=== PATIENT | female | born 1965 | race Caucasian/White ===

== ENCOUNTER 2017-12-21 19:35 | Emergency (ER) | payer BC ==
[2017-12-21 20:01] VITALS: BP 134/82
[2017-12-21] MEDS ORDERED: DIAZEPAM INJ 10 MG/2 ML DISP.SYRIN IV ONE (20:15)
[2017-12-21] MEDS ORDERED: NORMAL SALINE 1000 ML 1,000 ML IV ONE (20:16)
--- NOTE | 2017-12-21 20:17 | ER Document Report ---
ED Medical Screen (RME) - General Chief Complaint: Anxiety Stated Complaint: PSHYC Time Seen by Provider: 12/21/17 20:15 Notes: 52 years old female with a history of multiple psychiatric disorders including anxiety, suddenly started to having difficulty in breathing when she woke up in shaking both upper limbs and lower limbs, almost the entire body. She states that she is unable to control the shaking. Denies any constitutional symptoms. Denies any triggering factors. On examination-bilateral upper limbs and lower limbs voluntary movements noted. TRAVEL OUTSIDE OF THE [place] IN LAST 30 DAYS: No Physical Exam - Vital signs Vitals: Temp Pulse Resp BP Pulse Ox 97.6 F 113 H 18 134/82 H 98 12/21/17 20:00 12/21/17 20:00 12/21/17 20:00 12/21/17 20:00 12/21/17 20:00 Course - Vital Signs Vital signs: Temp Pulse Resp BP Pulse Ox 97.6 F 113 H 18 134/82 H 98 12/21/17 20:00 12/21/17 20:00 12/21/17 20:00 12/21/17 20:00 12/21/17 20:00 Doctor's Discharge - Discharge Instructions: Anxiety ([facility]) Referrals: MACIEJ OLIVEROS MD [Primary Care Provider] - Follow up as needed
[2017-12-21 20:44] LABS: ABSOLUTE LYMPHOCYTES (AUTO) 1.6 10^3/uL (0.5-4.7); ABSOLUTE MONOCYTES (AUTO) 0.7 10^3/uL (0.1-1.4); ABSOLUTE NEUT (AUTO) 7.3 10^3/uL (1.7-8.2); BASOPHILS % (AUTO) 0.2 % (0-2); HEMATOCRIT 39.5 % (36.0-47.0); HEMOGLOBIN 13.4 g/dL (12.0-15.5); LYMPHOCYTES % (AUTO) 16.9 % (13-45); MEAN CORPUSCULAR HEMOGLOBIN 32.4 pg (27.0-33.4); MEAN CORPUSCULAR VOLUME 95 fl (80-97); MONOCYTES % (AUTO) 7.6 % (3-13); PLATELET COUNT 443 10^3/uL (150-450); RED BLOOD COUNT 4.15 10^6/uL (3.72-5.28); RED CELL DISTRIBUTION WIDTH 12.6 % (11.5-14.0); SEGMENTED NEUTROPHILS % (AUTO) 75.3 % (42-78); TOTAL CELLS COUNTED % (AUTO) 100 %; WHITE BLOOD COUNT 9.7 10^3/uL (4.0-10.5)
[2017-12-21 22:27] LABS: ALANINE AMINOTRANSFERASE 19 U/L (9-52); ALBUMIN 4.3 g/dL (3.5-5.0); ALKALINE PHOSPHATASE 96 U/L (38-126); ANION GAP 9 (5-19); ASPARTATE AMINO TRANSFERASE 25 U/L (14-36); BILIRUBIN,DIRECT 0.5 mg/dL (0.0-0.4); BILIRUBIN,TOTAL 0.5 mg/dL (0.2-1.3); BLOOD UREA NITROGEN 10 mg/dL (7-20); CALCIUM 9.8 mg/dL (8.4-10.2); CARBON DIOXIDE 25 mmol/L (22-30); CHLORIDE 103 mmol/L (98-107); GLUCOSE 115 mg/dL (75-110); POTASSIUM 3.8 mmol/L (3.6-5.0); SODIUM 136.9 mmol/L (137-145); TOTAL PROTEIN 7.7 g/dL (6.3-8.2)
[2017-12-21 22:32] LABS: ACETAMINOPHEN < 10 ug/mL (10-30); ALCOHOL < 10 mg/dL (NONE DETECTED); SALICYLATE < 1.0 mg/dL (2.0-20.0)
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
[2017-12-21 23:57] LABS: APPEARANCE,URINE CLEAR; BILIRUBIN,URINE NEGATIVE (NEGATIVE); COLOR,URINE STRAW; GLUCOSE, URINE NEGATIVE (NEGATIVE); KETONES,URINE NEGATIVE (NEGATIVE); URINE SPECIFIC GRAVITY 1.003
[2017-12-21 23:58] LABS: LEUKOCYTE ESTERASE,URINE NEGATIVE (NEGATIVE); NITRITE,URINE NEGATIVE (NEGATIVE); PROTEIN,URINE NEGATIVE (NEGATIVE); UROBILINOGEN,URINE NEGATIVE mg/dL (<2.0)
[2017-12-21] MEDS ORDERED: LORAZEPAM INJ 2 MG/1 ML VIAL IV ONE (23:58)
[2017-12-22 00:14] LABS: URINE AMPHETAMINES SCREEN NEGATIVE; URINE BARBITURATES SCREEN NEGATIVE; URINE BENZODIAZEPINES SCREEN UNCONFIRMED POSITIVE; URINE COCAINE SCREEN NEGATIVE; URINE MARIJUANA (THC) SCREEN NEGATIVE; URINE METHADONE SCREEN NEGATIVE; URINE PHENCYCLIDINE SCREEN NEGATIVE
--- NOTE | 2017-12-22 12:18 | ER Document Report ---
Doctor's Note Notes: 12/22/17 12:17 Patient has been seen and evaluated resting comfortably no acute distress. Laboratory values previous provider note and vital signs have been evaluated. Patient otherwise looks to be stable for disposition/transfer.
--- NOTE | 2017-12-22 15:33 | EKG REPORT ---
SEVERITY:- ABNORMAL ECG - SINUS TACHYCARDIA BIATRIAL ABNORMALITIES BORDERLINE T ABNORMALITIES, ANT-LAT LEADS : Confirmed by: Zayda Carl MD 22-Dec-2017 15:32:47
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
== END 2017-12-22 12:30 | disposition home or self-care (01) ==
LOC: ER 19:35
DX: R25.1 Tremor, unspecified (principal); F41.9 Anxiety disorder, unspecified; F19.939 Other psychoactive substance use, unspecified with withdrawal, unspecified; F20.9 Schizophrenia, unspecified
CPT/HCPCS: 93005; 99284; 96361; 96374; 96375; 36415; 80307 ×4; 85025; 80053; 81001; 93010; J3360; J2060

== ENCOUNTER 2018-02-02 18:12 | Inpatient (IN) | payer BC ==
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
--- NOTE | 2018-02-02 18:42 | RADIOLOGY REPORT (SQ) ---
EXAM DESCRIPTION: CT HEAD WITHOUT COMPLETED DATE/TIME: 02/02/2018 6:25 pm REASON FOR STUDY: possible stroke COMPARISON: None. TECHNIQUE: Axial images acquired through the brain without intravenous contrast. Images reviewed wi th bone, brain and subdural windows. Additional sagittal and coronal reconstructions were generated. Images stored on PACS. All CT scanners at this facility use dose modulation, iterative reconstruction, and/or weight based d osing when appropriate to reduce radiation dose to as low as reasonably achievable (ALARA). [facility]: Dose Right [facility]: CareDose [facility]: Dose Right [facility]: Teradose 4D [facility]: Zipfit RADIATION DOSE: CT Rad equipment meets quality standard of care and radiation dose reduction techniq ues were employed. CTDIvol: 53.2 mGy. DLP: 937 mGy-cm. mGy. LIMITATIONS: None. FINDINGS: VENTRICLES: Normal size and contour. CEREBRUM: No masses. No hemorrhage. No midline shift. No evidence for acute infarction. Normal gra y/white matter differentiation. No areas of low density in the white matter. CEREBELLUM: No masses. No hemorrhage. No alteration of density. No evidence for acute infarction. EXTRAAXIAL SPACES: No fluid collections. No masses. ORBITS AND GLOBE: No intra- or extraconal masses. Normal contour of globe without masses. CALVARIUM: No fracture. PARANASAL SINUSES: No fluid or mucosal thickening. SOFT TISSUES: No mass or hematoma. OTHER: No other significant finding. IMPRESSION: NORMAL BRAIN CT WITHOUT CONTRAST. EVIDENCE OF ACUTE STROKE: NO. COMMENT: Pertinent positive or negative findings of the imaging study reported as a CRITICAL EXAM lamar TAPIA MD at18:30 on 02/02/2018. Category of Critical Exam: Stroke alert Quality ID # [id number]: Final reports with documentation of one or more dose reduction techniques (e.g., Au tomated exposure control, adjustment of the mA and/or kV according to patient size, use of iterative reconstruction technique) TECHNICAL DOCUMENTATION: JOB ID: [id number] [employer]- All Rights Reserved Reading location - IP/workstation name: [email or web address]
--- NOTE | 2018-02-02 18:43 | RADIOLOGY REPORT (SQ) ---
EXAM DESCRIPTION: CHEST SINGLE VIEW COMPLETED DATE/TIME: 02/02/2018 6:32 pm REASON FOR STUDY: POSSIBLE STROKE COMPARISON: None. EXAM PARAMETERS: NUMBER OF VIEWS: One view. TECHNIQUE: Single frontal radiographic view of the chest acquired. RADIATION DOSE: NA LIMITATIONS: None. FINDINGS: LUNGS AND PLEURA: No opacities, masses or pneumothorax. No pleural effusion. MEDIASTINUM AND HILAR STRUCTURES: No masses. Contour normal. HEART AND VASCULAR STRUCTURES: Heart normal in size. Normal vasculature. BONES: Thoracolumbar scoliosis is identified. HARDWARE: None in the chest. OTHER: No other significant finding. IMPRESSION: NO ACUTE RADIOGRAPHIC FINDING IN THE CHEST. TECHNICAL DOCUMENTATION: JOB ID: [id number] [employer]- All Rights Reserved Reading location - IP/workstation name: [email or web address]
--- NOTE | 2018-02-02 18:44 | ER Document Report ---
ED General - General Chief Complaint: S/S of Possible Stroke Stated Complaint: FALL/ALTERED MENTAL STATUS Time Seen by Provider: 02/02/18 18:20 Notes: 52-year-old lady presents with altered mental status. Last seen normal 5 hours ago by , and then when he got home furniture was all messed up like she had been falling and he found her on the floor the bathroom minimally responsive. No lateralizing symptoms. 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 She is minimally responsive but does deny taking an overdose and he has no concern for either purposeful or accidental overdose. Denies fever or recent illness. Seen at triage. Stroke protocol initiated. CT was read negative by radiologist to me. TRAVEL OUTSIDE OF THE [place] IN LAST 30 DAYS: No - Related Data Allergies/Adverse Reactions: latex Allergy (Verified 02/02/18 18:47) sulfur dioxide Allergy (Verified 02/02/18 18:47) Past Medical History - Social History Smoking Status: Never Smoker Family History: Reviewed & Not Pertinent Renal/ Medical History: Denies: Hx Peritoneal Dialysis Review of Systems - Review of Systems Notes: PHYSICAL EXAMINATION General: Thin chronically ill lips dry slumped in the bed d Head: Atraumatic, normocephalic ENT: Mouth normal, oropharynx very dry no exudates or tonsillar enlargement Eyes: Conjunctiva normal, pupils equal, lids normal Neck: No JVD, supple, no guarding CVS: Normal rate, regular rhythm, no murmurs Resp: No resp distress, equal and normal breath sounds bilaterally GI: Nondistended, soft, no tenderness to palpation, no rebound or guarding Ext: No deformities, no edema, normal range of motion in upper and lower ext Back: No CVA or midline TTP Skin: No rash, warm Lymphatic: No lymphadeopathy noted Neuro: BP arouses to voice. Follows commands weakly with all 4 extremities, strength is globally decreased but no lateralizing strength deficits. Cranial nerves are intact. Speech is slurred and appropriate. Patient is disoriented. There is no hyperreflexia, rigidity or clonus.. -: Yes ROS unobtainable due to patient's medical condition Physical Exam - Vital signs Vitals: Temp Resp BP Pulse Ox 98.1 F 15 118/70 100 02/02/18 18:34 02/02/18 18:34 02/02/18 18:34 02/02/18 18:34 Course - Re-evaluation Re-evalutation: 02/02/18 18:43 This is a critically ill 52-year-old with altered mental status on the setting of multiple psychiatric drugs. Differential includes anticholinergic overdose either accidental or purposeful, doubt serotonin syndrome or neuroleptic neuroleptic malignant syndrome at this point. Is also likely quite dehydrated. Will check for vitamin around his renal failure and rhabdo myelitis. We will do EKG for syncope. Etiology read negative. 02/02/18 22:24 Patient reassessed about an hour after arrival. After about a liter of fluid she is perked up some, has her eyes open and her head upright, and answer simple questions although her speech is still slurred and her states that she still off her baseline. She has a very mild rhabdomyolysis with normal creatinine and otherwise her labs are unrevealing. CT scan confirmed negative. She still has not been able to provide urine. She does have a white count so this needs to be followed up. I did discuss with hospitalist, Dr. Henriquez, for admission. I do not believe this reflects seizure, stroke, neuroleptic malignant syndrome or other severe drug intoxication or side effect at this time, she may simply just be dehydrated given her improvement with fluids. She will be admitted for further management. Urine is still pending as of 10: 25 PM when I am signing this note. Hospitalist to follow-up. - Vital Signs Vital signs: Temp Pulse Resp BP Pulse Ox 97.5 F 84 17 122/67 100 02/02/18 20:50 02/02/18 20:50 02/02/18 20:50 02/02/18 20:50 02/02/18 20:50 - Laboratory Result Diagrams: 02/02/18 18:37 02/02/18 18:37 Laboratory results interpreted by me: 02/02/18 02/02/18 18:37 18:37 WBC 13.9 H Seg Neutrophils % 89.1 H Lymphocytes % 5.3 L Absolute Neutrophils 12.4 H Carbon Dioxide 31 H Est GFR (Non-Af Amer) 58 L Creatine Kinase 525 H Critical Care Note - Critical Care Note Total time excluding time spent on procedures (mins): 32 - The above patient is critically ill. Not including procedures, but including direct re-evaluations, speaking with patient and/or consultants, interpreting results, and documenting , I spent the total amount of minute listed listed above on critical care time Discharge - Discharge Clinical Impression: Dehydration Altered mental status Qualifiers: Altered mental status type: unspecified Qualified Code(s): R41.82 - Altered mental status, unspecified Condition: Fair Disposition: ADMITTED INPATIENT Admitting Provider: Hospitalist Unit Admitted: Medical Floor
[2018-02-02 18:49] LABS: ABSOLUTE LYMPHOCYTES (AUTO) 0.7 10^3/uL (0.5-4.7); ABSOLUTE MONOCYTES (AUTO) 0.7 10^3/uL (0.1-1.4); ABSOLUTE NEUT (AUTO) 12.4 10^3/uL (1.7-8.2); BASOPHILS % (AUTO) 0.3 % (0-2); HEMATOCRIT 37.5 % (36.0-47.0); HEMOGLOBIN 12.7 g/dL (12.0-15.5); LYMPHOCYTES % (AUTO) 5.3 % (13-45); MEAN CORPUSCULAR HEMOGLOBIN 32.6 pg (27.0-33.4); MEAN CORPUSCULAR HGB CONC 33.9 g/dL (32.0-36.0); MEAN CORPUSCULAR VOLUME 96 fl (80-97); MONOCYTES % (AUTO) 5.3 % (3-13); PLATELET COUNT 264 10^3/uL (150-450); RED CELL DISTRIBUTION WIDTH 13.4 % (11.5-14.0); SEGMENTED NEUTROPHILS % (AUTO) 89.1 % (42-78); TOTAL CELLS COUNTED % (AUTO) 100 %; WHITE BLOOD COUNT 13.9 10^3/uL (4.0-10.5)
[2018-02-02] MEDS ORDERED: NORMAL SALINE 1000 ML 1,000 ML IV ONE (18:55)
[2018-02-02 19:02] LABS: ANION GAP 10 (5-19); BLOOD UREA NITROGEN 16 mg/dL (7-20); CALCIUM 9.6 mg/dL (8.4-10.2); CARBON DIOXIDE 31 mmol/L (22-30); CHLORIDE 99 mmol/L (98-107); CREATINE KINASE 525 U/L (30-135); GLUCOSE 105 mg/dL (75-110); POTASSIUM 3.9 mmol/L (3.6-5.0); SODIUM 140.1 mmol/L (137-145)
[2018-02-02] MEDS ORDERED: MAG HYDROX/AL HYDROX/SIMETH SUSP 30 ML UDCUP PO PRN (22:00)
[2018-02-02] MEDS ORDERED: NORMAL SALINE 1000 ML 1,000 ML IV PRN (22:00)
[2018-02-02] MEDS ORDERED: ZIPRASIDONE MESYLATE INJ/PF 20 MG SDV IM PRN (22:04)
[2018-02-02 22:20] LABS: INTERNATIONAL RATION (INR) 0.96; PROTHROMBIN TIME 13.3 SEC (11.4-15.4)
[2018-02-02 22:21] LABS: PARTIAL THROMBOPLASTIN TIME 31.9 SEC (23.5-35.8)
[2018-02-02 22:28] LABS: ACETAMINOPHEN < 10 ug/mL (10-30); ALCOHOL < 10 mg/dL (NONE DETECTED); SALICYLATE < 1.0 mg/dL (2.0-20.0)
[2018-02-02 22:35] LABS: APPEARANCE,URINE CLEAR; BILIRUBIN,URINE NEGATIVE (NEGATIVE); COLOR,URINE STRAW; GLUCOSE, URINE NEGATIVE (NEGATIVE); KETONES,URINE NEGATIVE (NEGATIVE); LEUKOCYTE ESTERASE,URINE NEGATIVE (NEGATIVE); NITRITE,URINE NEGATIVE (NEGATIVE); PROTEIN,URINE NEGATIVE (NEGATIVE); UROBILINOGEN,URINE NEGATIVE mg/dL (<2.0)
[2018-02-02 22:53] LABS: URINE AMPHETAMINES SCREEN NEGATIVE; URINE BARBITURATES SCREEN NEGATIVE; URINE COCAINE SCREEN NEGATIVE; URINE MARIJUANA (THC) SCREEN NEGATIVE; URINE METHADONE SCREEN NEGATIVE; URINE PHENCYCLIDINE SCREEN NEGATIVE
[2018-02-02 23:00] LABS: URINE BENZODIAZEPINES SCREEN UNCONFIRMED POSITIVE
--- NOTE | 2018-02-03 00:30 | PDOC H&P ---
History of Present Illness Admission Date/PCP: 02/02/18 19:34 GLEN ALEMAN PA-C Patient complains of: Altered mental status History of Present Illness: JONNY CORRAL is a 52 year old female who was brought to the emergency department with altered mental status. Her is at the bedside and tells me that she lives home around 5 in the morning and did not come back until 5 PM , at that time he found her in the bathroom sitting on the floor very confused, he managed to take her to the couch, he went out for a couple of minutes and when he came back he found her laying down in the pantry. Initially patient minimally responsive, patient has psychiatric history on many medications. tells me that she never had any drug overdose. Apparently patient did not have any complain, he just noted that she was walking twisting her body to the left yesterday but she was not complaining of any back pain. In the emergency department CT of the head was negative, initially requested as stroke protocol. At home she is on benztropine, trazodone, sertraline, risperidone, imipramine, perphenazine. Patient looks very dehydrated in the ED and IV fluids given. By the time I went to evaluate that she was already on the floor, she was awake, able to follow simple commands but is still looks confused with slurred speech, had dilated pupil pupils but reactive. Moves all extremities with no neurological focalization. Patient has chronic tremors in upper and lower extremities but is able to ambulate. Urinalysis not done either urine drug screen. Past Medical History Neurological Medical History: Reports: Other - Chronic tremors in upper and lower extremities Psychiatric Medical History: Reports: General Anxiety Disorder, Other - Schizophrenia with psychosis Past Surgical History Past Surgical History: Reports: Orthopedic Surgery - Neck surgery Social History Information Source: Relative Lives with: Family Smoking Status: Never Smoker Frequency of Alcohol Use: Occasional - tells me that she used to drink 1 -2 beers on Fridays but she has not done so for several weeks now Hx Recreational Drug Use: No Hx Prescription Drug Abuse: No - Advance Directive Resuscitation Status: Full Code Family History Family History: Reviewed & Not Pertinent Parental Family History Reviewed: No - Unable to cooperate Children Family History Reviewed: NA Sibling(s) Family History Reviewed.: NA Medication/Allergy Home Medications: Benztropine Mesylate [Cogentin 1 mg Tablet] 1 mg PO BID 02/02/18 Clorazepate Dipotassium 7.5 mg PO QAMP PRN 02/02/18 Clorazepate Dipotassium 15 mg PO QHS 02/02/18 Imipramine HCl [Tofranil] 100 mg PO DAILY 02/02/18 Perphenazine 4 mg PO DAILY 02/02/18 Risperidone [Risperdal] 4 mg PO BID 02/02/18 Sertraline HCl [Zoloft 50 mg Tablet] 50 mg PO DAILY 02/02/18 Trazodone HCl [Desyrel] 100 mg PO QHS 02/02/18 Allergies/Adverse Reactions: latex Allergy (Verified 02/02/18 18:47) sulfur dioxide Allergy (Verified 02/02/18 18:47) Review of Systems Review of Systems: Unable to obtain as the patient is confused Physical Exam Vital Signs: Temp Pulse Resp BP Pulse Ox 97.5 F 84 17 122/67 100 02/02/18 20:50 02/02/18 20:50 02/02/18 20:50 02/02/18 20:50 02/02/18 20:50 Intake & Output 02/01/18 02/02/18 02/03/18 06:59 06:59 06:59 Intake Total 1000 Balance 1000 Weight 54.2 kg Additional comments: General appearance: Well-developed, well-nourished, somnolent and confused, and appears to be in no acute distress Head: Normocephalic Eyes: Pupils dilated 5 mm reactive to light, EOMI, vision is grossly intact. Ears: External auditory canal and tympanic membranes clear, hearing grossly intact. Nose: No nasal discharge. Throat: Oral cavity and pharynx normal. No inflammation, swelling, exudate or lesions. Neck: Neck supple, nontender without lymphadenopathy, masses or thyromegaly. Cardiac: Normal S1 and S2. No S3, S4 or murmurs. Rhythm is regular. There is no peripheral edema, cyanosis or pallor. Extremities are warm and well perfused. Capillary refill is less than 2 seconds. No carotid bruits. Lungs: Clear to auscultation and percussion without rales, rhonchi, wheezing or diminished breath sounds. Not using accessory muscles. Abdomen: Positive bowel sounds. Soft. Nondistended, nontender. No guarding or rebound. No masses. No hepatosplenomegaly Extremities: No significant deformity or joint abnormality. No edema. Peripheral pulses intact. No varicosities. Neurological: Cranial nerves II through XII grossly intact. Strength and sensation symmetric and intact throughout. Tremors in upper and lower extremities Skin: Skin normal color, texture and turgor with no lesions or eruptions, warm and dry. Psychiatric: Unable to evaluate as the patient is confused, unable to answer questions properly. Results Laboratory Results: 02/02/18 19:52 Urine Color STRAW Urine Appearance CLEAR Urine pH 6.0 Ur Specific Newberry 1.010 Urine Protein NEGATIVE Urine Glucose (UA) NEGATIVE Urine Ketones NEGATIVE Urine Blood NEGATIVE Urine Nitrite NEGATIVE Ur Leukocyte Esterase NEGATIVE Urine WBC (Auto) 0 02/02/18 02/02/18 02/02/18 18:37 18:37 18:37 WBC 13.9 H RBC 3.90 Hgb 12.7 Hct 37.5 MCV 96 MCH 32.6 MCHC 33.9 RDW 13.4 Plt Count 264 Seg Neutrophils % 89.1 H Lymphocytes % 5.3 L Monocytes % 5.3 Eosinophils % 0.0 Basophils % 0.3 Absolute Lymphocytes 0.7 Absolute Monocytes 0.7 Absolute Eosinophils 0.0 Absolute Basophils 0.0 PT 13.3 INR 0.96 APTT 31.9 Sodium 140.1 Potassium 3.9 Chloride 99 Carbon Dioxide 31 H Anion Gap 10 BUN 16 Est GFR ( Amer) > 60 Est GFR (Non-Af Amer) 58 L Glucose 105 Calcium 9.6 Creatine Kinase 525 H Urine Color Urine Appearance Urine pH Ur Specific Newberry Urine Protein Urine Glucose (UA) Urine Ketones Urine Blood Urine Nitrite Urine Bilirubin Urine Urobilinogen Ur Leukocyte Esterase Urine WBC (Auto) U Hyaline Cast (Auto) Squamous Epi Cells Auto Urine Mucus (Auto) Urine Ascorbic Acid 02/02/18 19:52 WBC RBC Hgb Hct MCV MCH MCHC RDW Plt Count Seg Neutrophils % Lymphocytes % Monocytes % Eosinophils % Basophils % Absolute Lymphocytes Absolute Monocytes Absolute Eosinophils Absolute Basophils PT INR APTT Sodium Potassium Chloride Carbon Dioxide Anion Gap BUN Est GFR ( Amer) Est GFR (Non-Af Amer) Glucose Calcium Creatine Kinase Urine Color STRAW Urine Appearance CLEAR Urine pH 6.0 Ur Specific Newberry 1.010 Urine Protein NEGATIVE Urine Glucose (UA) NEGATIVE Urine Ketones NEGATIVE Urine Blood NEGATIVE Urine Nitrite NEGATIVE Urine Bilirubin NEGATIVE Urine Urobilinogen NEGATIVE Ur Leukocyte Esterase NEGATIVE Urine WBC (Auto) 0 U Hyaline Cast (Auto) 10 Squamous Epi Cells Auto <1 Urine Mucus (Auto) RARE Urine Ascorbic Acid NEGATIVE EKG Comments: Sinus tachycardia with a ventricular rate of 96 bpm, multiple APCs with a possible Mobitz 2 AV block. QTc 445, NE 152. Impressions: Chest X-Ray 02/02/18 00:00 IMPRESSION: NO ACUTE RADIOGRAPHIC FINDING IN THE CHEST. Head CT 02/02/18 00:00 IMPRESSION: NORMAL BRAIN CT WITHOUT CONTRAST. EVIDENCE OF ACUTE STROKE: NO. Assessment & Plan - Diagnosis (1) Encephalopathy Is this a current diagnosis for this admission?: Yes Plan: Patient comes with encephalopathy, is still confused, unclear etiology, suspected drug overdose. EKG with a possible AV block with APCs, will place a stat EKG and if necessary transferred the patient to the intensive care unit. For now continue with telemetry monitoring and IV fluid with normal saline running at 125 cc/h. Requested urinalysis, urine drug screen, added to prior labs salicylates, acetaminophen levels and alcohol levels. I spoke with poison control and recommended supportive care and repeated EKG. Cardiology evaluation. (2) Schizophrenia spectrum disorder with psychotic disorder type not yet determined Is this a current diagnosis for this admission?: Yes Plan: Home medications on hold. Psychiatric consult in the morning. (3) Elevated CK Is this a current diagnosis for this admission?: Yes Plan: We are given IV fluids and will reassess this value in the morning. - Time Time Spent: 50 to 70 Minutes - Inpatient Certification Based on my medical assessment, after consideration of the patient's comorbidities, presenting symptoms, or acuity I expect that the services needed warrant INPATIENT care.: Yes I certify that my determination is in accordance with my understanding of Medicare's requirements for reasonable and necessary INPATIENT services [42 CFR 412.3e].: Yes Medical Necessity: Risk of Complication if Not Cared For in Hospital - Plan Summary Plan Summary: Plan discussed with patient's , agree with it.
[2018-02-03 05:24] LABS: ABSOLUTE LYMPHOCYTES (AUTO) 1.1 10^3/uL (0.5-4.7); ABSOLUTE MONOCYTES (AUTO) 0.6 10^3/uL (0.1-1.4); ABSOLUTE NEUT (AUTO) 6.3 10^3/uL (1.7-8.2); BASOPHILS % (AUTO) 0.2 % (0-2); EOSINOPHILS % (AUTO) 0.1 % (0-6); HEMATOCRIT 33.4 % (36.0-47.0); HEMOGLOBIN 11.1 g/dL (12.0-15.5); LYMPHOCYTES % (AUTO) 13.4 % (13-45); MEAN CORPUSCULAR HEMOGLOBIN 32.2 pg (27.0-33.4); MEAN CORPUSCULAR HGB CONC 33.4 g/dL (32.0-36.0); MEAN CORPUSCULAR VOLUME 97 fl (80-97); MONOCYTES % (AUTO) 7.5 % (3-13); PLATELET COUNT 258 10^3/uL (150-450); RED BLOOD COUNT 3.46 10^6/uL (3.72-5.28); RED CELL DISTRIBUTION WIDTH 13.1 % (11.5-14.0); SEGMENTED NEUTROPHILS % (AUTO) 78.8 % (42-78); TOTAL CELLS COUNTED % (AUTO) 100 %
[2018-02-03 05:50] LABS: ALANINE AMINOTRANSFERASE 18 U/L (9-52); ALBUMIN 3.3 g/dL (3.5-5.0); ALKALINE PHOSPHATASE 66 U/L (38-126); ANION GAP 7 (5-19); ASPARTATE AMINO TRANSFERASE 37 U/L (14-36); BILIRUBIN,DIRECT 0.2 mg/dL (0.0-0.4); BILIRUBIN,TOTAL 0.6 mg/dL (0.2-1.3); BLOOD UREA NITROGEN 12 mg/dL (7-20); CALCIUM 8.6 mg/dL (8.4-10.2); CARBON DIOXIDE 30 mmol/L (22-30); CHLORIDE 105 mmol/L (98-107); CREATINE KINASE 996 U/L (30-135); GLUCOSE 85 mg/dL (75-110); POTASSIUM 3.8 mmol/L (3.6-5.0); SODIUM 142.4 mmol/L (137-145); TOTAL PROTEIN 5.9 g/dL (6.3-8.2)
--- NOTE | 2018-02-03 08:27 | EKG REPORT ---
SEVERITY:- ABNORMAL ECG - SINUS TACHYCARDIA MULTIPLE ATRIAL PREMATURE COMPLEXES : Confirmed by: Zayda Carl MD 03-Feb-2018 08:26:20
--- NOTE | 2018-02-03 08:27 | EKG REPORT ---
SEVERITY:- OTHERWISE NORMAL ECG - SINUS TACHYCARDIA : Confirmed by: Zayda Carl MD 03-Feb-2018 08:26:14
--- NOTE | 2018-02-03 08:27 | EKG REPORT ---
SEVERITY:- ABNORMAL ECG - SINUS TACHYCARDIA MULTIPLE ATRIAL PREMATURE COMPLEXES : Confirmed by: Zayda Carl MD 03-Feb-2018 08:26:52
--- NOTE | 2018-02-03 10:11 | PROGRESS NOTE E ---
Progress Note NAME: JONNY CORRAL : 1965 AGE: 52Y DATE: 02/03/2018 ROOM: 536 SUBJECTIVE: The patient is currently lying in bed. The patient will awaken and follow simple commands, such as squeezing my hand. She would open her eyes. is present at the bedside interactive in the patient's care. He denies any change of her medication. Denies excessive somnolence during the day, but states that the patient always takes a nap during the day. He said that the patient "started walking sideways" the day before yesterday, before these symptoms occurred; however, uncertain of how available the is during the day to monitor the patient's symptoms. There have been no episodes of vomiting nor diarrhea. The patient has been afebrile. Blood pressure has been in good range. The patient has not voice any other concerns at this time. REVIEW OF SYSTEMS: Unobtainable. MEDICATION: Reviewed. OBJECTIVE: GENERAL: The patient is a 52-year-old female, who is awake, but unable to fully assess orientation. She does not appear to be in distress. VITAL SIGNS: Temperature is 98.3, pulse 102, respirations 17, blood pressure 120/50, oxygen saturation 100% on room air. SKIN: Warm, pale. No rash. She is not diaphoretic. HEENT: Pupils are sluggish, but reactive. No evidence of JVP. CVS: Heart is tachycardic, regular. No rub. CHEST: Clear, symmetrical, unlabored. ABDOMEN: Nondistended. EXTREMITIES: No clubbing, cyanosis or edema. PSYCHIATRIC: Unable to fully assess. DIAGNOSTIC VALUES: Hematology obtained on 02/03/2018: WBCs are 8.0, hemoglobin is 11.1, hematocrit is , platelet count is 358,000. Chemistry obtained on 02/03/2018: Sodium is 142, potassium is 2.9, chloride is 105, carbon dioxide 30, BUN 12, creatinine is 0.87. Glucose 85, calcium is 8.6. Bilirubin is 0.6, AST 37, ALT is 18, alk phos is 86. CK 996. Serum protein 5.9, albumin 3.3. IMPRESSION AND PLAN: 1. ACUTE, MOST LIKELY TOXIC, ENCEPHALOPATHY, MOST LIKELY RELATED TO THE PATIENT'S POLYPHARMACY. However, will obtain B12, T4 and ammonia level. Additionally will add on RPR. This does appear to be acute etiology. Will continue supportive management, including IV fluids and hold the patient's medications until she wakes up. 2. RHABDOMYOLYSIS, VERY MILD. Will continue to hydrate the patient and repeat CK in the a.m. The patient's creatinine never bumped. 3. TRANSAMINITIS. Just ever so slightly elevated. Will repeat LFTs in the a.m. 4. SCHIZOPHRENIA. The patient has had a long history and has a long list of medications. I do appreciate psychiatric input on this. DISPOSITION: The patient is a FULL CODE. Pending patient's symptomatology and diagnostic findings, will reevaluate in the a.m. Time spent on this followup, including assessment, plan, physical examination, attempted patient education and family meeting, was 25 minutes. DICTATING PHYSICIAN: PRO PLATT NP [id number] PHY#: [id number] ID: [id number] JOB#: [id number] ACCT: [id number] cc: > MTDD
[2018-02-03] MEDS: ENOXAPARIN SODIUM INJ 40 MG/0.4 ML DISP.SYRIN SUBCUT SCH (11:31)
[2018-02-03] MEDS: LORAZEPAM INJ 2 MG/1 ML VIAL IV SCH ×3 (12:54→23:05)
[2018-02-03] MEDS: NORMAL SALINE 1000 ML 1,000 ML IV PRN (12:56)
--- NOTE | 2018-02-03 16:24 | PSYCHOLOGICAL NOTE ---
Psych Note - Psych Note Date seen by psych provider: 02/03/18 Time seen by psych provider: 14:30 Psych Note: Reason for Consult: possible overdose Patient presents to ER with decreased responsiveness. Family with pt. Reports pt was staggering around home and then pt was found on back in bathroom on floor. Patient was unable to engage in evaluation. Conversational speech was mumbled and impossible to understand. Patient was unable to open eyes and is observed shaking. Patient is also attempting multiple times to get out of the bed. Condition spoke with patient's . He reports that he left for work at 4: 30 in the morning and came home at 5 PM and found her on the bathroom floor. He states that she did call him earlier today but he missed her call and did not get a chance to speak with her. He denies the patient has a history of self -harm or attempting suicide and states she does not have any mental health diagnosis. He continued to deny the patient had been under any recent stress. [place] controlled substance abuse reports system; there does not appear to be any concerns i.e. consistent doctors, pharmacy, prescriptions etc. Chart review indicates patient has an outpatient mental health provider with [facility] for her medication management and [facility] for therapy. [facility] confirmed patient's mental health diagnoses; alcohol abuse, unspecified psychosis, generalized anxiety disorder, and pervasive depressive disorder. Medication recommendations per [facility]'s contracted psychiatrist Dr. Kimberli ROBINS are as follows Discontinue Geodon Please restart home medication of Prolixin at 1 mg twice daily Please discontinue home medications of Zoloft and trazodone start BuSpar 5 mg twice daily Start Effexor 37.5 mg twice daily continue Cogentin 1 mg daily Diagnosis 300.02 (F41.1) the generalized anxiety disorder per history provided by patient' s provider 300.4 (F34.1) persistent depressive disorder per history provided by patient's provider 298.9 (F29) unspecified psychosis per history provided by patient's provider 291.9 (F10.99) unspecified alcohol related disorder per history provided by patient's provider Impression\plan: Patient is recommended for IVC petition. Patient is unable to engage with evaluation. The patient's was unwilling or unable to provide accurate till health history for patient. Medication recommendations have been provided. Patient will be reevaluated. Dr. Oconnor was consulted and the care and management of this patient; attending physician is agreement with recommendations and disposition.
[2018-02-03] MEDS: AMPICILLIN SODIUM/SULBACTAM NA 3 GM in NORMAL SALINE 100 ML IV SCH (17:32)
[2018-02-04] MEDS: AMPICILLIN SODIUM/SULBACTAM NA 3 GM in NORMAL SALINE 100 ML IV SCH ×5 (00:24→23:03)
[2018-02-04 04:30] LABS: HEMATOCRIT 32.6 % (36.0-47.0); HEMOGLOBIN 11.1 g/dL (12.0-15.5); MEAN CORPUSCULAR HEMOGLOBIN 32.7 pg (27.0-33.4); MEAN CORPUSCULAR HGB CONC 34.1 g/dL (32.0-36.0); MEAN CORPUSCULAR VOLUME 96 fl (80-97); PLATELET COUNT 223 10^3/uL (150-450); RED CELL DISTRIBUTION WIDTH 13.6 % (11.5-14.0); WHITE BLOOD COUNT 9.7 10^3/uL (4.0-10.5)
[2018-02-04 04:54] LABS: ANION GAP 11 (5-19); BLOOD UREA NITROGEN 7 mg/dL (7-20); CALCIUM 8.5 mg/dL (8.4-10.2); CARBON DIOXIDE 24 mmol/L (22-30); CHLORIDE 105 mmol/L (98-107); GLUCOSE 72 mg/dL (75-110); POTASSIUM 3.5 mmol/L (3.6-5.0); SODIUM 139.9 mmol/L (137-145)
[2018-02-04 05:02] LABS: CREATINE KINASE 2155 U/L (30-135)
[2018-02-04] MEDS: LORAZEPAM INJ 2 MG/1 ML VIAL IV SCH ×4 (06:21→23:04)
[2018-02-04] MEDS: NORMAL SALINE 1000 ML 1,000 ML IV PRN (06:24)
[2018-02-04] MEDS: ENOXAPARIN SODIUM INJ 40 MG/0.4 ML DISP.SYRIN SUBCUT SCH (09:01)
--- NOTE | 2018-02-04 11:01 | PROGRESS NOTE E ---
Progress Note NAME: JONNY CORRAL : 1965 AGE: 52Y DATE: 02/04/2018 ROOM: 536 SUBJECTIVE: The patient was seen this morning on rounds. The patient is not very responsive. Apparently the patient did receive some Ativan earlier this morning. Upon review of previous notes it appears she has actually tried to crawl out of the bed at times. However, she is somnolent for me. The patient has been unable to provide any history. She does have a sitter that is present at the bedside. Patient unable to voice any specific concerns at this time. REVIEW OF SYSTEMS: Unobtainable. MEDICATION: Reviewed. OBJECTIVE: GENERAL: The patient is a 52-year-old female, who is somnolent, does not appear to be in distress. VITAL SIGNS: Temperature is 97.5, pulse 105, respirations 16, blood pressure 117/75, oxygen saturation 100% on room air. SKIN: Pale and dry. No rash. She is not diaphoretic. Multiple areas of bruising over the patient's body in various stages. HEENT: There is no evidence of JVP. Pupillary athetosis with elimination. CVS: Heart is regular, tachycardic. No rub. CHEST: Clear, symmetrical, unlabored. ABDOMEN: Soft, nontender. EXTREMITIES: No edema. The patient has bilateral intact reflexes. Negative Babinski sign. PSYCHIATRIC: Quite difficult to assess, the patient is somnolent. DIAGNOSTIC VALUES: Hematology obtained on 02/04/2018: WBCs are 9.7, hemoglobin is 11.1, hematocrit is 26.2, platelet count is 223,000. Chemistry obtained on 02/04/2018: Sodium is 139, potassium is 2.5, chloride is 105, carbon dioxide 24, BUN 7, creatinine is 0.73. Glucose 72, calcium is 8.5, magnesium is 1.9, CK is 21.55. IMPRESSION AND PLAN: 1. ACUTE, MOST LIKELY TOXIC, ENCEPHALOPATHY RELATED TO THE PATIENT'S POLYPHARMACY. The patient's other metabolic work up has appeared to be unremarkable. We will obtain MRI with contrast today as well as an EEG. 2. RHABDOMYOLYSIS. This is due to the patient's uncertain time of lying on the floor. We will continue to hydrate the patient and follow. 3. HYPOKALEMIA. Quite mild. We will replete. 4. TRANSAMINITIS. Will repeat LFTs in the a.m. 5. SCHIZOPHRENIA. The patient has a long list of medications. I do appreciate psychiatric input on this. DISPOSITION: The patient is a FULL CODE. Pending patient's symptomatology and diagnostic findings, will reevaluate in the a.m. Time spent on this followup, including assessment, plan, physical examination, and attempt at patient education is 25 minutes. DICTATING PHYSICIAN: PRO PLATT NP [id number] PHY#: [id number] ID: [id number] JOB#: [id number] ACCT: [id number] cc: >
--- NOTE | 2018-02-04 15:43 | RADIOLOGY REPORT (SQ) ---
EXAM DESCRIPTION: MRI HEAD COMBO COMPLETED DATE/TIME: 02/04/2018 3:29 pm REASON FOR STUDY: w/ contrast, intial sz, AMS, unequal pupils COMPARISON: None. TECHNIQUE: Multiplanar imaging includes noncontrasted T1, T2, FLAIR, and Diffusion with ADC map seq uences. Contrast enhanced T1 images. Images stored on PACS. CONTRAST TYPE AND DOSE: 10 mL Dotarem. RENAL FUNCTION: GFR > 60. LIMITATIONS: Patient motion. FINDINGS: ANATOMY: No anomalies. Normal vascular flow voids. Pituitary fossa normal. CSF SPACES: Normal size and contour. No hemorrhage. CEREBRUM: A few high-signal intensity lesions scattered throughout the white matter on FLAIR imaging with distribution suggesting chronic microvascular ischemic change. Sulci and gyri normal in size and contour. No evidence of hemorrhage, mass or extraaxial fluid collection. No enhancing lesions. POSTERIOR FOSSA: No signal alteration. No hemorrhage. No edema, masses or mass effect. Internal audit ory canals, cerebello-pontine angles, mastoids normal. DIFFUSION: Negative for acute or subacute infarction. ORBITS: No masses. Globes normal. PARANASAL SINUSES: No fluid levels. Mucosa normal. OTHER: No other significant finding. IMPRESSION: No acute findings. EVIDENCE OF ACUTE STROKE: NO. TECHNICAL DOCUMENTATION: JOB ID: [id number] [employer]- All Rights Reserved Reading location - IP/workstation name: [email or web address]
--- NOTE | 2018-02-04 16:12 | PSYCHOLOGICAL NOTE ---
Psych Note - Psych Note Date seen by psych provider: 02/04/18 Time seen by psych provider: 15:30 Psych Note: drew for Consult: possible overdose Patient presents to ER with decreased responsiveness. Family with pt. Reports pt was staggering around home and then pt was found on back in bathroom on floor. Check-in conducted with patient Patient sister at bedside. Patient still unable to effectively engage with clinician. Patient stated that her father brought her to [facility] but did not know why. Patient's sister states that her father is . Patient's sister continued to disclose the patient recently moved to a different part [facility] and no longer lives right across the road from her. She states she is concerned the patient does not eat properly because she used to ensure that she did. Clinician asked the patient if she missed to living across the street from her sister at which point the patient started to cry. She was unable to verbalize any words. Medication recommendations per [facility]'s contracted psychiatrist Dr. Kimberli ROBINS are as follows Discontinue Geodon Please restart home medication of Prolixin at 1 mg twice daily Please discontinue home medications of Zoloft and trazodone start BuSpar 5 mg twice daily Start Effexor 37.5 mg twice daily continue Cogentin 1 mg daily Diagnosis 300.02 (F41.1) the generalized anxiety disorder per history provided by patient' s provider 300.4 (F34.1) persistent depressive disorder per history provided by patient's provider 298.9 (F29) unspecified psychosis per history provided by patient's provider 291.9 (F10.99) unspecified alcohol related disorder per history provided by patient's provider Impression\plan: Patient is recommended for continued IVC. Patient is unable to engage with evaluation. It is unclear at this time if the patient intentionally overdosed. Medication recommendations have been provided. Patient will be reevaluated. Dr. Oconnor was consulted and the care and management of this patient; attending physician is agreement with recommendations and disposition.
[2018-02-04] MEDS: BENZTROPINE MESYLATE 1 MG TABLET PO SCH ×2 (16:34→17:23)
[2018-02-04] MEDS: BUSPIRONE HCL 10 MG TABLET PO SCH ×2 (17:17→21:14)
[2018-02-05] MEDS: POTASSI CL 20 MEQ/D5-1/2NS 1L 1,000 ML IV PRN ×2 (04:20→23:06)
[2018-02-05] MEDS: LORAZEPAM INJ 2 MG/1 ML VIAL IV SCH ×4 (05:29→22:50)
[2018-02-05] MEDS: AMPICILLIN SODIUM/SULBACTAM NA 3 GM in NORMAL SALINE 100 ML IV SCH ×4 (05:30→23:15)
[2018-02-05] MEDS: BENZTROPINE MESYLATE 1 MG TABLET PO SCH ×2 (11:15→16:58)
[2018-02-05] MEDS: BUSPIRONE HCL 10 MG TABLET PO SCH ×2 (11:16→22:50)
[2018-02-05] MEDS: ENOXAPARIN SODIUM INJ 40 MG/0.4 ML DISP.SYRIN SUBCUT SCH (11:16)
--- NOTE | 2018-02-05 11:52 | PROGRESS NOTE E ---
Progress Note NAME: JONNY CORRAL : 1965 AGE: 52Y DATE: 02/05/2018 ROOM: 536 SUBJECTIVE: The patient is lying in bed. The patient is not responsive to me. The patient has sat up in bed as witnessed by staff. Additionally, it appears the patient was interactive with her sister yesterday according to the psychiatric notes. The patient has not been as responsive for me since the first day I saw her. Thus far the patient's metabolic workup has been unremarkable. I will add on a PTH today for the sake of completion. Additionally, the patient's MRI was unremarkable as well. However, the patient still for me is not very responsive. Do appreciate psychiatric input on this. There have been no reported episodes of vomiting nor diarrhea. The patient appears comfortable. REVIEW OF SYSTEMS: Unobtainable. MEDICATIONS: Reviewed. OBJECTIVE: GENERAL: The patient is a 52-year-old female who is not responsive. She does not appear to be distressed though. VITAL SIGNS: As follows: Temperature is 98.9, pulse 109, respirations 16, blood pressure is 115/74, oxygen saturation is 100% on room air. SKIN: Pale. She is not diaphoretic. HEENT: Mucous membranes are dry. Does have a prominent thyroid. CARDIOVASCULAR: Heart is tachycardic, regular, no rub. CHEST: Clear, symmetrical, unlabored. ABDOMEN: Nondistended. EXTREMITIES: There is no edema. PSYCHIATRIC: Unresponsive. DIAGNOSTICS: Lab values are as follows. Hematology obtained on 02/04/2018: WBC is 9.7, hemoglobin 11.1, hematocrit 32.6, platelet count is 223,000. Chemistry obtained on 02/04/2018: Sodium is 139, potassium 4.5, chloride 105, carbon dioxide 24, BUN 7, creatinine 0.73, glucose 72, calcium is 8.5, magnesium is 1.9. CK is 2155. IMPRESSION AND PLAN: 1. RHABDOMYOLYSIS. This is due to the patient lying on the floor. Her creatinine has never bumped. Continue to hydrate and follow. 2. HYPOKALEMIA, QUITE MILD. This has been repleted in the IV fluids. 3. TRANSAMINITIS. Will repeat LFTs in the a.m. 4. POSSIBLE TOXIC ENCEPHALOPATHY. Could be related to the patient's polypharmacy, although we are getting into day 3 now, so some of this should be clearing. Her MRI was unremarkable. Metabolic workup has appeared to be completely unremarkable. The only thing that is pending is PTH. Therefore, am concerned that this may possibly be more of a psychiatric etiology given the patient's long history. Will continue supportive measures through today and re-evaluate and follow. DISPOSITION: THE PATIENT IS A FULL CODE. Pending the patient's symptomatology and diagnostic findings, will re-evaluate in the a.m. Time spent on this followup, including assessment/plan, physical examination, patient education, review of records, is 25 minutes. DICTATING PHYSICIAN: PRO PLATT NP [id number] PHY#: [id number] ID: [id number] JOB#: [id number] ACCT: [id number] cc: >
[2018-02-05] MEDS ORDERED: NORMAL SALINE 1000 ML 1,000 ML with POTASSIUM CHLORIDE 20 MEQ, MAGNESIUM SULFATE 8 MEQ,... IV ONE ×5 (12:30)
[2018-02-05 13:04] LABS: ANION GAP 13 (5-19); BLOOD UREA NITROGEN 2 mg/dL (7-20); CALCIUM 8.3 mg/dL (8.4-10.2); CARBON DIOXIDE 24 mmol/L (22-30); CHLORIDE 104 mmol/L (98-107); CREATINE KINASE 1144 U/L (30-135); GLUCOSE 102 mg/dL (75-110)
[2018-02-05 13:06] LABS: POTASSIUM 2.9 mmol/L (3.6-5.0)
[2018-02-05] MEDS ORDERED: POTASSI CL 20 MEQ/50 ML RIDER 20 MEQ/50 ML RTUPB IV ONE (17:15)
--- NOTE | 2018-02-05 17:38 | Progress Note ---
Provider Note Provider Note: ID Consult Note Asked by Pharmacy to review patient's chart. Pt not seen or examined. Ms Neely is a 52 year old woman who has a PMH including depressive disorder, alcohol related disorder, psychosis, and generalized anxiety disorder and is on multiple psychiatric medications at home. Pt presented on 02/02/18 with AMS to [facility] after family found her confused at home. In the ED, she was suspected to have dehydration, possible overdose, and potentially rhabdomyolysis. No associated fever reported by family or objectively. Exam on admission was documented as showing no murmur, clear lungs, soft abdomen with NABS, no joint abnormality or peripheral edema, no rashes, no focal neurological deficits, and supple neck without LAD. U/A showed no pyuria. WBC was elevated 13.9k initially. CPK was elevated. Imaging included CXR that showed no acute radiographic finding and MRI of the brain that showed no infarct, no paranasal sinus disease, no enhancing lesions, only some scattered white matter lesions on FLAIR read as being most c/w chronic microvascular ischemic change. Empirically, Unasyn was also started during this admission. Pt has remained afebrile. WBC count normalized. On exam, pt continues to lack localizing features. She is being managed for rhabdomyolysis, mild hypokalemia, and possible toxic encephalopathy vs underlying psychiatric etiology. Impression/Recommendations I do not see a clear indication to continue Unasyn, given the lack of fever, lack of meningeal signs on exam, and lack of localizing physical exam features to suggest an infectious process or from labs and imaging (U/A, CT head, MRI head, CXR) performed to date. Suggest discontinuing it and monitoring patient. Shon Velarde MD [facility] pager [phone]
[2018-02-05] MEDS: FLUPHENAZINE HCL 2.5 MG TABLET PO SCH (22:50)
--- NOTE | 2018-02-05 23:48 | PSYCHOLOGICAL NOTE ---
Psych Note - Psych Note Date seen by psych provider: 02/05/18 Time seen by psych provider: 15:54 Psych Note: Reason for Consult: possible overdose Patient presents to ER with decreased responsiveness. Family with pt. Reports pt was staggering around home and then pt was found on back in bathroom on floor. Check-in conducted with patient Patient reports remembering watching TV and then feeling sick. She reports the last thing she remembers is going into the bathroom; "the next thing he remembers being here." She states that she takes her medications as prescribed. She is never been inpatient psychiatric treatment and does have an outpatient provider with Dr. Sheppard but does not see a therapist. Patient denies substance abuse history. Patient became very tearful suddenly. She was difficult to understand however, she was finally able to state that she lost her dog approximately 2 weeks ago and then stated that she hopes that the dog is "still there." Patient was unable to further explain this comment. Medication recommendations per [facility]'s contracted psychiatrist Dr. Kimberli ROBINS are as follows Discontinue Geodon Please restart home medication of Prolixin at 1 mg twice daily Please discontinue home medications of Zoloft and trazodone start BuSpar 5 mg twice daily Start Effexor 37.5 mg twice daily continue Cogentin 1 mg daily Diagnosis 300.02 (F41.1) the generalized anxiety disorder per history provided by patient' s provider 300.4 (F34.1) persistent depressive disorder per history provided by patient's provider 298.9 (F29) unspecified psychosis per history provided by patient's provider 291.9 (F10.99) unspecified alcohol related disorder per history provided by patient's provider Impression\\plan: Patient is recommended for continued IVC. Patient's presentation has improved. She is able to keep her eyes open and engage in conversation. Patient is currently denying thoughts of self harm or attempting to hurt herself prior to arrival. Patient states she was having a normal evening and started to feel sick; she reports going to the bathroom and vomiting and tripping over the family dog. This is the last thing she remembers until waking up at [facility]. There is concerns about the patient liable affect has she will randomly burst out into tears. Medication have be recommended and patient will be reevaluated. Dr. Oconnor was consulted and the care and management of this patient; attending physician is agreement with recommendations and disposition.
[2018-02-06 05:18] LABS: HEMATOCRIT 33.8 % (36.0-47.0); HEMOGLOBIN 11.8 g/dL (12.0-15.5); MEAN CORPUSCULAR HGB CONC 34.9 g/dL (32.0-36.0); MEAN CORPUSCULAR VOLUME 95 fl (80-97); PLATELET COUNT 298 10^3/uL (150-450); RED BLOOD COUNT 3.58 10^6/uL (3.72-5.28); RED CELL DISTRIBUTION WIDTH 13.4 % (11.5-14.0); WHITE BLOOD COUNT 8.3 10^3/uL (4.0-10.5)
[2018-02-06] MEDS: AMPICILLIN SODIUM/SULBACTAM NA 3 GM in NORMAL SALINE 100 ML IV SCH (05:20)
[2018-02-06] MEDS: LORAZEPAM INJ 2 MG/1 ML VIAL IV SCH ×3 (05:20→21:52)
[2018-02-06 05:38] LABS: ANION GAP 7 (5-19); CALCIUM 8.1 mg/dL (8.4-10.2); CARBON DIOXIDE 28 mmol/L (22-30); CHLORIDE 106 mmol/L (98-107); CREATINE KINASE 1033 U/L (30-135); GLUCOSE 125 mg/dL (75-110); POTASSIUM 3.5 mmol/L (3.6-5.0)
[2018-02-06 05:40] LABS: BLOOD UREA NITROGEN < 2 mg/dL (7-20)
[2018-02-06] MEDS: BENZTROPINE MESYLATE 1 MG TABLET PO SCH ×2 (08:59→17:14)
[2018-02-06] MEDS: BUSPIRONE HCL 10 MG TABLET PO SCH ×2 (08:59→21:53)
[2018-02-06] MEDS: ENOXAPARIN SODIUM INJ 40 MG/0.4 ML DISP.SYRIN SUBCUT SCH (09:00)
[2018-02-06] MEDS: POTASSI CL 20 MEQ/D5-1/2NS 1L 1,000 ML IV PRN ×2 (10:21→19:19)
[2018-02-06 12:03] LABS: ALANINE AMINOTRANSFERASE 35 U/L (9-52); ALKALINE PHOSPHATASE 73 U/L (38-126); ASPARTATE AMINO TRANSFERASE 53 U/L (14-36); BILIRUBIN,DIRECT 0.1 mg/dL (0.0-0.4); BILIRUBIN,TOTAL 0.5 mg/dL (0.2-1.3); TOTAL PROTEIN 5.6 g/dL (6.3-8.2)
[2018-02-06] MEDS: POTASSIUM CHLORIDE 10 MEQ CAPSULE.ER PO ONE ×4 (14:34→14:45)
[2018-02-06] MEDS: ACETAMINOPHEN 325 MG TABLET PO PRN (14:35)
--- NOTE | 2018-02-06 15:37 | PSYCHOLOGICAL NOTE ---
Psych Note - Psych Note Psych Note: Reason for consult: possible overdose, re-evaluation Clinician conducted check in with patient. Patient is sitting up in her bed with a slight tremor. Patient is able to engage the clinician in a clear, concise manner. Patient denies suicidal/ homicidal ideation with no intent, means or plans. Patient's mood is euthymic. Patient is able to make good eye contact. Attention and concentration are fair. Patient is oriented to person, place time and circumstance. Patient presents with an organized and linear thought process. Conversational speech was within normal rate, tone and prosody. Intellectual abilities appear to be within the average range. Insight, judgment, impulse control are fair. No medication recommendations at this time. Diagnosis 300.02 (F41.1) the generalized anxiety disorder per history provided by patient' s provider 300.4 (F34.1) persistent depressive disorder per history provided by patient's provider 298.9 (F29) unspecified psychosis per history provided by patient's provider 291.9 (F10.99) unspecified alcohol related disorder per history provided by patient's provider Impression/Plan: Patient is recommended for rescind of IVC and is cleared from acute psychiatric services. Patient denies suicidal/homicidal ideation with no intent, means or plans. Patient's presentation has improved. She was able to effectively engage this clinician in conversation. Patient no longer displays a tearful affect or bursts into tears during a conversation. Dr. Oconnor was consulted and the care and management of this patient; attending physician is in agreement with recommendations and disposition.
--- NOTE | 2018-02-06 18:06 | PROGRESS NOTE E ---
Progress Note NAME: JONNY CORRAL : 1965 AGE: 52Y DATE: 02/06/2018 ROOM: 536 SUBJECTIVE: The patient was sitting up in bed. She is eating breakfast this morning. Her is present at the bedside, active in the patient's care. The patient is still not completely interactive and will not answer my questions. The patient is eating, but is catatonic in presentation. There have been no reported episodes of vomiting nor diarrhea. The patient is being followed by psychiatric services. The patient has not voiced any other concerns at this time. REVIEW OF SYSTEMS: Unobtainable. MEDICATIONS: Reviewed. OBJECTIVE: GENERAL: The patient is a 52-year-old female who is awake, alert. Unable to fully assess orientation. She is catatonic. Does not appear to be in distress. VITAL SIGNS: Temperature is 98.3, pulse 117, respirations 24, blood pressure is 118/75. Oxygen saturation 99% on room air. SKIN: Warm and dry. No rash. Not diaphoretic. HEENT: Pupils equal, round, reactive to light and accommodation. Conjunctivae pink. There is no evidence of JVP. HEART: Tachycardic, regular. No rub. CHEST: Clear, symmetrical, unlabored. ABDOMEN: Soft, nontender. EXTREMITIES: No clubbing or cyanosis. Does have some trace dependent edema. DIAGNOSTICS: Lab values are as follows: Hematology obtained on 02/06/2018: WBCs are 8.3, hemoglobin is 11.8, hematocrit is 33.8, platelet count is 298,000. Chemistry obtained on 02/06/2018: Sodium is 141, potassium 2.5, chloride is 106, carbon dioxide 28, BUN 2, creatinine is 0.26. Glucose 125, calcium is 8.1, magnesium is 2.4. CK is 1033. IMPRESSION AND PLAN: 1. RHABDOMYOLYSIS. The patient was lying on the floor for a while. Her CKs trended down. Continue to hydrate and follow. 2. HYPOKALEMIA. Replete with IV fluids. 3. TRANSAMINITIS. Improved. 4. TOXIC ENCEPHALOPATHY VERSUS DEPRESSIVE PSYCHOSIS. It may be related to the patient's polypharmacy. She is getting into day 4 now, clearing up some. MRI unremarkable. Metabolic workup completely unremarkable. This may just be more of a psychiatric etiology. The patient is being followed by Psychiatric services. Medication adjustments have been made and will continue to titrate benzodiazepine and follow. 5. LEUKOCYTOSIS. There was concern for maybe some possible aspiration. The patient's white count has normalized. She is eating fine at this point. It was felt she may have aspirated while she was down for a while. Will go ahead and discontinue Unasyn. DISPOSITION: The patient is a FULL CODE. Pending patient's symptomatology and diagnostic findings, we will reevaluate in the a.m. Time spent on this followup, including assessment, plan, physical examination, patient education, review of records and family meeting, was 20 minutes. DICTATING PHYSICIAN: PRO PLATT NP [id number] PHY#: [id number] ID: [id number] JOB#: [id number] ACCT: [id number] cc: >
[2018-02-06] MEDS: FLUPHENAZINE HCL 2.5 MG TABLET PO SCH (21:53)
[2018-02-07] MEDS: POTASSI CL 20 MEQ/D5-1/2NS 1L 1,000 ML IV PRN (02:17)
[2018-02-07] MEDS: LORAZEPAM INJ 2 MG/1 ML VIAL IV SCH (06:04)
[2018-02-07 07:19] LABS: ANION GAP 8 (5-19); CALCIUM 8.9 mg/dL (8.4-10.2); CARBON DIOXIDE 25 mmol/L (22-30); CHLORIDE 107 mmol/L (98-107); GLUCOSE 121 mg/dL (75-110); SODIUM 139.8 mmol/L (137-145)
[2018-02-07 07:24] LABS: BLOOD UREA NITROGEN < 2 mg/dL (7-20)
--- NOTE | 2018-02-07 10:20 | RADIOLOGY REPORT (SQ) ---
EXAM DESCRIPTION: HIP LEFT AP/LATERAL COMPLETED DATE/TIME: 02/07/2018 10:03 am REASON FOR STUDY: Fall and pain COMPARISON: None. NUMBER OF VIEWS: Two views. TECHNIQUE: AP pelvis and additional frog-leg view of the left hip. LIMITATIONS: None. FINDINGS: MINERALIZATION: Normal. LEFT HIP: No fracture or dislocation. No worrisome bone lesions. RIGHT HIP: No fracture or dislocation. No worrisome bone lesions. PUBIS AND ISCHIUM: No fracture. PELVIS: No fracture. SACRUM: No fracture or dislocation. No worrisome bone lesions. LOWER LUMBAR SPINE: No fracture or dislocation. No worrisome bone lesions. No significant disc disea se. SOFT TISSUES: No findings. OTHER: No other significant finding. IMPRESSION: NEGATIVE STUDY OF THE LEFT HIP AND PELVIS. NO RADIOGRAPHIC EVIDENCE OF ACUTE INJURY. TECHNICAL DOCUMENTATION: JOB ID: [id number] [employer]- All Rights Reserved Reading location - IP/workstation name: [email or web address]
[2018-02-07] MEDS: BUSPIRONE HCL 10 MG TABLET PO SCH ×2 (10:24→22:11)
[2018-02-07] MEDS: LORAZEPAM 0.5 MG TABLET PO SCH ×2 (10:24→17:44)
[2018-02-07] MEDS: BENZTROPINE MESYLATE 1 MG TABLET PO SCH ×2 (10:24→17:44)
[2018-02-07] MEDS: ENOXAPARIN SODIUM INJ 40 MG/0.4 ML DISP.SYRIN SUBCUT SCH (10:35)
--- NOTE | 2018-02-07 15:31 | PROGRESS NOTE E ---
Progress Note NAME: JONNY CORRAL : 1965 AGE: 52Y DATE: 02/07/2018 ROOM: 536 SUBJECTIVE: The patient is more awake and alert. Today, she is complaining of left hip pain. The patient has not been out of bed in days now. She has really been unable to communicate any of her needs. No reports of any nausea or vomiting. There are no reported episodes of diarrhea. The patient is also quite tremulous. According to the , some of her medications make her tremor. This tremulous state has not been present during her stay until now. The patient has been afebrile. Her blood pressure has been in good range and the patient has not voiced any other concerns at this time. REVIEW OF SYSTEMS: Negative. MEDICATIONS: Reviewed. OBJECTIVE: GENERAL: The patient is a 52-year-old female, who is awake, alert. Nearly catatonic. Does not appear to be distressed. VITAL SIGNS: Temperature is 98.6, pulse 105, respirations 17, blood pressure 123/76, oxygen saturation 98% on room air. SKIN: Pale, dry. No rash. She is not diaphoretic. HEENT: Pupils are reactive. Conjunctivae are pink. No evidence of JVP. CVS: Heart is regular. There is no rub. CHEST: Clear, symmetrical, unlabored. ABDOMEN: Soft, nontender. BACK: No CVA tenderness or sacral edema. EXTREMITIES: No clubbing, cyanosis or edema. Patient does have bruising noted on her left hip. The patient is actually bruised throughout on all of her joints. DIAGNOSTICS: Hematology obtained on 02/06/2018: WBC 11.0, hemoglobin is 11.0, hematocrit is 32.8, platelet count is 298,000. Coagulation obtained on 02/07/2018: Sodium is 139, potassium is 4.0, chloride is 107, carbon dioxide is 25. BUN 2, creatinine is 0.69, glucose 121, calcium is 8.9, magnesium is 1.8. ASSESSMENT: 1. TOXIC ENCEPHALOPATHY VERSUS DEPRESSIVE PSYCHOSIS. The patient did have significant polypharmacy prior to admission. She is now on day 4 into 5 of her care, and is clearing somewhat. Her MRI was unremarkable. Metabolic workup was completely unremarkable. The only thing pending at this point in time is the EEG. Will continue scheduled benzodiazepine at this point in time, as the patient was on a long-acting benzodiazepine at home and I do not want to abruptly stop this. Recommendations have been made by Psych for medications. One included Effexor; however, I am quite hesitant to start an SRNI in this patient, due to her tremulousness and uncertainty of her seizure status. Will hold off on this for now. The patient's IVC has been rescinded, as she is no longer deemed a potential harm to herself or others. The patient was IVC'd due to her inability to participate in her interview. 2. RHABDOMYOLYSIS, SECONDARY TO THE PATIENT BEING ON THE FLOOR AND HER MULTIPLE FALLS. CK trended down. She was hydrated well. Her creatinine never bumped with this. 3. HYPOKALEMIA. This was repleted with IV fluids. 4. TRANSAMINITIS. LFTs have remained the same. This is overall mild though. 5. LEUKOCYTOSIS. This has improved. My initial concern was possible for an aspiration, given that she was found on the floor and was not really protecting her airway that well. She received 4 days of Unasyn. White count normalized. No fevers, and the patient overall appears much improved. Did ever appear to have pneumonia. 6. LEFT HIP PAIN. This may be due to fall. We will obtain images today. 7. UNSTEADY GAIT. Will have the patient evaluated by Physical Therapy as well. DISPOSITION: The patient is a FULL CODE. Pending patient's symptomatology and diagnostic findings, will reevaluate in the a.m. Patient does need to be seen by case management as she seems too weak to be home alone. However, she may continue to improve. Time spent on this followup, including assessment, plan, physical examination, patient education, review of records and family meeting is 25 minutes. DICTATING PHYSICIAN: PRO PLATT NP [id number] [id number] PHY#: [id number] ID: [id number] JOB#: [id number] ACCT: [id number] cc: > [facility]
[2018-02-07] MEDS: ACETAMINOPHEN 325 MG TABLET PO PRN (18:38)
[2018-02-07] MEDS: FLUPHENAZINE HCL 2.5 MG TABLET PO SCH (22:11)
[2018-02-08 05:18] LABS: ABSOLUTE EOSINOPHILS # (AUTO) 0.1 10^3/uL (0.0-0.6); ABSOLUTE LYMPHOCYTES (AUTO) 1.5 10^3/uL (0.5-4.7); ABSOLUTE NEUT (AUTO) 4.8 10^3/uL (1.7-8.2); BASOPHILS % (AUTO) 0.3 % (0-2); EOSINOPHILS % (AUTO) 1.2 % (0-6); HEMATOCRIT 36.5 % (36.0-47.0); HEMOGLOBIN 12.7 g/dL (12.0-15.5); LYMPHOCYTES % (AUTO) 20.1 % (13-45); MEAN CORPUSCULAR HEMOGLOBIN 32.7 pg (27.0-33.4); MEAN CORPUSCULAR HGB CONC 34.7 g/dL (32.0-36.0); MEAN CORPUSCULAR VOLUME 94 fl (80-97); PLATELET COUNT 347 10^3/uL (150-450); RED BLOOD COUNT 3.87 10^6/uL (3.72-5.28); RED CELL DISTRIBUTION WIDTH 13.4 % (11.5-14.0); SEGMENTED NEUTROPHILS % (AUTO) 65.4 % (42-78); TOTAL CELLS COUNTED % (AUTO) 100 %; WHITE BLOOD COUNT 7.4 10^3/uL (4.0-10.5)
[2018-02-08 05:48] LABS: ALANINE AMINOTRANSFERASE 36 U/L (9-52); ALBUMIN 3.4 g/dL (3.5-5.0); ALKALINE PHOSPHATASE 74 U/L (38-126); ANION GAP 11 (5-19); ASPARTATE AMINO TRANSFERASE 44 U/L (14-36); BILIRUBIN,DIRECT 0.2 mg/dL (0.0-0.4); BILIRUBIN,TOTAL 0.4 mg/dL (0.2-1.3); BLOOD UREA NITROGEN 9 mg/dL (7-20); CALCIUM 9.8 mg/dL (8.4-10.2); CARBON DIOXIDE 25 mmol/L (22-30); CHLORIDE 106 mmol/L (98-107); CREATINE KINASE 630 U/L (30-135); GLUCOSE 105 mg/dL (75-110); POTASSIUM 4.4 mmol/L (3.6-5.0); SODIUM 142.4 mmol/L (137-145); TOTAL PROTEIN 6.5 g/dL (6.3-8.2)
[2018-02-08] MEDS: BUSPIRONE HCL 10 MG TABLET PO SCH ×2 (09:39→21:07)
[2018-02-08] MEDS: LORAZEPAM 0.5 MG TABLET PO SCH ×2 (09:39→17:36)
[2018-02-08] MEDS: BENZTROPINE MESYLATE 1 MG TABLET PO SCH ×2 (09:39→17:34)
[2018-02-08] MEDS: ENOXAPARIN SODIUM INJ 40 MG/0.4 ML DISP.SYRIN SUBCUT SCH (09:41)
[2018-02-08] MEDS: PROPRANOLOL HCL 10 MG TABLET PO SCH ×3 (10:16→21:06)
--- NOTE | 2018-02-08 11:04 | PDOC PROGRESS REPORT ---
Subjective Progress Note for:: 02/08/18 Subjective:: Patient alert and oriented, feels she is doing better. She she is however noted to be tremulous. States this is chronic. Still with left hip pain but better. Still with unsteady gait. Denies chest pain or shortness of breath, no fever or chills, no cough or hemoptysis. Reason For Visit: ACUTE ENCEPHALOPATHY Physical Exam Vital Signs: Temp Pulse Resp BP Pulse Ox 98.2 F 110 H 24 H 102/65 100 02/08/18 09:11 02/08/18 09:11 02/08/18 09:11 02/08/18 09:11 02/08/18 09:11 Intake & Output 02/07/18 02/08/18 02/09/18 06:59 06:59 06:59 Intake Total 2147 Output Total 907 Balance 1240 Weight 47.2 kg GENERAL: Well-developed, no acute distress HEENT: Normocephalic/atraumatic NECK supple, no JVD CARDIOVASCULAR: RRR, normal S1-S2 LUNGS: CTA bilaterally ABDOMEN: Soft, NT, NL bowel sounds EXTREMITIES: No edema, clubbing, cyanosis NEUROLOGICAL: Alert, oriented x 3, generalized tremor, no focal weakness Results Laboratory Results: 02/08/18 04:40 02/08/18 04:40 02/08/18 02/08/18 04:40 04:40 WBC 7.4 RBC 3.87 Hgb 12.7 Hct 36.5 MCV 94 MCH 32.7 MCHC 34.7 RDW 13.4 Plt Count 347 Seg Neutrophils % 65.4 Lymphocytes % 20.1 Monocytes % 13.0 Eosinophils % 1.2 Basophils % 0.3 Absolute Neutrophils 4.8 Absolute Lymphocytes 1.5 Absolute Monocytes 1.0 Absolute Eosinophils 0.1 Absolute Basophils 0.0 Sodium 142.4 Potassium 4.4 Chloride 106 Carbon Dioxide 25 Anion Gap 11 BUN 9 Creatinine 0.87 Est GFR ( Amer) > 60 Est GFR (Non-Af Amer) > 60 Glucose 105 Calcium 9.8 Magnesium 2.1 Total Bilirubin 0.4 AST 44 H ALT 36 Alkaline Phosphatase 74 Total Protein 6.5 Albumin 3.4 L 02/04/18 02/05/18 02/06/18 04:07 12:23 04:08 Creatine Kinase 2155 H 1144 H 1033 H 02/07/18 02/08/18 06:25 04:40 Creatine Kinase 964 H 630 H Impressions: Chest X-Ray 02/02/18 00:00 IMPRESSION: NO ACUTE RADIOGRAPHIC FINDING IN THE CHEST. Head CT 02/02/18 00:00 IMPRESSION: NORMAL BRAIN CT WITHOUT CONTRAST. EVIDENCE OF ACUTE STROKE: NO. Head MRI 02/04/18 00:00 IMPRESSION: No acute findings. EVIDENCE OF ACUTE STROKE: NO. Hip X-Ray 02/07/18 00:00 IMPRESSION: NEGATIVE STUDY OF THE LEFT HIP AND PELVIS. NO RADIOGRAPHIC EVIDENCE OF ACUTE INJURY. Assessment & Plan - Diagnosis (1) Encephalopathy Is this a current diagnosis for this admission?: Yes Plan: Toxic metabolic. Patient was evaluated by psych, IVC has been rescinded. On scheduled benzo, as she was on it at home. Effexor on hold given no known seizure status. (2) Rhabdomyolysis Is this a current diagnosis for this admission?: Yes Plan: Patient well-hydrated. Rhabdo continues to improve. (3) Schizophrenia spectrum disorder with psychotic disorder type not yet determined Is this a current diagnosis for this admission?: Yes (4) Transaminitis Is this a current diagnosis for this admission?: Yes Plan: Mild, stable. (5) Left hip pain Is this a current diagnosis for this admission?: Yes Plan: Improving. X-ray of the left hip and pelvis negative for acute process. (6) Unsteady gait Is this a current diagnosis for this admission?: Yes Plan: Appears secondary to tremors. PT/OT evaluation. Fall precautions, has one-to- one sitter. (7) Tremor Is this a current diagnosis for this admission?: Yes Plan: Patient reports this is chronic. She is on chronic low-dose Ativan. She is on BuSpar for anxiety. Tremor does not appear to be tardive dyskinesia. Will try propranolol 5 mg every 8 hours. (8) Hypokalemia Is this a current diagnosis for this admission?: No Plan: Resolved (9) Leukocytosis Is this a current diagnosis for this admission?: No Plan: White count has normalized, status post 4 days of Unasyn. Also status post evaluation by [facility]. - Plan Summary Plan Summary: Care management evaluation for possible APS referral.
[2018-02-08] MEDS: FLUPHENAZINE HCL 2.5 MG TABLET PO SCH (21:06)
[2018-02-09] MEDS: PROPRANOLOL HCL 10 MG TABLET PO SCH ×2 (06:08→13:06)
[2018-02-09 09:04] LABS: ABSOLUTE EOSINOPHILS # (AUTO) 0.1 10^3/uL (0.0-0.6); ABSOLUTE LYMPHOCYTES (AUTO) 2.2 10^3/uL (0.5-4.7); BASOPHILS % (AUTO) 0.3 % (0-2); HEMATOCRIT 36.8 % (36.0-47.0); HEMOGLOBIN 12.4 g/dL (12.0-15.5); LYMPHOCYTES % (AUTO) 19.4 % (13-45); MEAN CORPUSCULAR HEMOGLOBIN 31.6 pg (27.0-33.4); MEAN CORPUSCULAR HGB CONC 33.8 g/dL (32.0-36.0); MEAN CORPUSCULAR VOLUME 94 fl (80-97); MONOCYTES % (AUTO) 9.1 % (3-13); PLATELET COUNT 452 10^3/uL (150-450); RED BLOOD COUNT 3.93 10^6/uL (3.72-5.28); RED CELL DISTRIBUTION WIDTH 13.6 % (11.5-14.0); SEGMENTED NEUTROPHILS % (AUTO) 70.2 % (42-78); TOTAL CELLS COUNTED % (AUTO) 100 %; WHITE BLOOD COUNT 11.4 10^3/uL (4.0-10.5)
[2018-02-09 09:16] LABS: ANION GAP 11 (5-19); BLOOD UREA NITROGEN 11 mg/dL (7-20); CALCIUM 9.6 mg/dL (8.4-10.2); CARBON DIOXIDE 22 mmol/L (22-30); CHLORIDE 102 mmol/L (98-107); CREATINE KINASE 425 U/L (30-135); GLUCOSE 118 mg/dL (75-110); POTASSIUM 4.1 mmol/L (3.6-5.0); SODIUM 135.3 mmol/L (137-145)
[2018-02-09] MEDS: ENOXAPARIN SODIUM INJ 40 MG/0.4 ML DISP.SYRIN SUBCUT SCH (10:06)
[2018-02-09] MEDS: BUSPIRONE HCL 10 MG TABLET PO SCH (10:07)
[2018-02-09] MEDS: BENZTROPINE MESYLATE 1 MG TABLET PO SCH (10:07)
[2018-02-09] MEDS: LORAZEPAM 0.5 MG TABLET PO SCH (10:15)
[2018-02-09 14:03] VITALS: BP 133/84
--- NOTE | 2018-02-09 19:13 | PDOC DISCHARGE SUMMARY ---
General - Admit/Disc Date/PCP Admission Date/Primary Care Provider: 02/03/18 14:25 GLEN ALEMAN PA-C Discharge Date: 02/09/18 - Discharge Diagnosis (1) Encephalopathy Is this a current diagnosis for this admission?: Yes (2) Rhabdomyolysis Is this a current diagnosis for this admission?: Yes (3) Schizophrenia spectrum disorder with psychotic disorder type not yet determined Is this a current diagnosis for this admission?: Yes (4) Transaminitis Is this a current diagnosis for this admission?: Yes (5) Left hip pain Is this a current diagnosis for this admission?: Yes (6) Unsteady gait Is this a current diagnosis for this admission?: Yes (7) Tremor Is this a current diagnosis for this admission?: Yes (8) Hypokalemia Is this a current diagnosis for this admission?: No (9) Leukocytosis Is this a current diagnosis for this admission?: No - Additional Information Resuscitation Status: Full Code Prescriptions: Buspirone HCl [Buspar 10 mg Tablet] 10 mg PO Q12 30 Days #60 tablet Venlafaxine HCl ER [Effexor Xr 37.5 mg Cap.sr] 37.5 mg PO BID 30 Days #60 cap.sr.24h Home Medications: Benztropine Mesylate [Cogentin 1 mg Tablet] 1 mg PO BID 02/02/18 Clorazepate Dipotassium 15 mg PO QHS 02/02/18 Acetaminophen [Tylenol 325 mg Tablet] 650 mg PO Q4HP PRN tablet 02/09/18 Buspirone HCl [Buspar 10 mg Tablet] 10 mg PO Q12 30 Days #60 tablet 02/09/18 Fluphenazine HCl [Prolixin 2.5 mg Tablet] 2.5 mg PO QHS tablet 02/09/18 Venlafaxine HCl ER [Effexor Xr 37.5 mg Cap.sr] 37.5 mg PO BID 30 Days #60 cap.sr.24h 02/09/18 History of Present Illness History of Present Illness: JONNY CORRAL is a 52 year old female history of schizophrenia several antipsychotic medications, who lives at home with her , was brought to the emergency room with confusion/altered mental status. apparently came back from work and found patient on the floor and acting confused. He was not sure how long patient was down, he was out of the home for 12 hours. Evaluation in the ED significant for rhabdomyolysis with CPK rising as high as 2100. Head CT was negative chest x-ray negative urinalysis negative. Patient had mild leukocytosis with white blood cells count 13,000. Hospital Course Hospital Course: Patient was admitted to hospitalist service with diagnosis of encephalopathy, hepatopetal to be polypharmacy. Patient also with tremors that says are chronic. Patient bumps into furnitures a lot and had bruises on the arms and legs. Patient was treated with IV fluid hydration. There was initial concern for infectious cause and patient was treated with Unasyn. She was evaluated by [facility] specialist Dr. Wayne Velarde, who recommended against continued antibiotics. Patient had MRI of the head done that was negative for acute process. Patient was evaluated by psychiatry and diagnosed with the followin.02 (F41.1) the generalized anxiety disorder per history provided by patient' s provider 300.4 (F34.1) persistent depressive disorder per history provided by patient's provider 298.9 (F29) unspecified psychosis per history provided by patient's provider 291.9 (F10.99) unspecified alcohol related disorder per history provided by patient's provider The following medication changes were made. Medication recommendations per [facility]'s contracted psychiatrist Dr. Kimberli ROBINS are as follows Discontinue Geodon Please restart home medication of Prolixin at 1 mg twice daily Please discontinue home medications of Zoloft and trazodone start BuSpar 5 mg twice daily Start Effexor 37.5 mg twice daily continue Cogentin 1 mg daily Patient was also evaluated by physical therapy who recommended long-term facility with rehab. However patient and refused. They are requesting to go home. Also recommended home health PT, but they also refused. They wanted prescription for rolling walker, which I have ordered. Patient has generally improved, with improvement in mental status. CPK has been decreasing nicely, but still elevated in the 400. I informed patient and about this and they still requested to go home. Of note is that patient is no longer on IV fluids and CPK continued to improve. She is currently being discharged home in improved condition. She is to follow with her primary care physician within 1 week. She is also to follow-up with her mental health providers within 1 week. Physical Exam Vital Signs: Temp Pulse Resp BP Pulse Ox 98.6 F 114 H 24 H 129/93 H 98 02/09/18 10:00 02/09/18 10:00 02/09/18 10:00 02/09/18 10:00 02/09/18 10:00 Intake & Output 02/08/18 02/09/18 02/10/18 06:59 06:59 06:59 Intake Total 2147 860 Output Total 907 Balance 1240 860 Weight 47.2 kg 45 kg GENERAL: Well-developed, no acute distress HEENT: Normocephalic/atraumatic NECK supple, no JVD CARDIOVASCULAR: RRR, normal S1-S2 LUNGS: CTA bilaterally ABDOMEN: Soft, NT, NL bowel sounds EXTREMITIES: No edema, clubbing, cyanosis NEUROLOGICAL: Alert, oriented x 3, generalized tremor, no focal weakness Results Laboratory Results: 02/09/18 08:44 02/09/18 08:44 02/09/18 02/09/18 08:44 08:44 WBC 11.4 H RBC 3.93 Hgb 12.4 Hct 36.8 MCV 94 MCH 31.6 MCHC 33.8 RDW 13.6 Plt Count 452 H Seg Neutrophils % 70.2 Lymphocytes % 19.4 Monocytes % 9.1 Eosinophils % 1.0 Basophils % 0.3 Absolute Neutrophils 8.0 Absolute Lymphocytes 2.2 Absolute Monocytes 1.0 Absolute Eosinophils 0.1 Absolute Basophils 0.0 Sodium 135.3 L Potassium 4.1 Chloride 102 Carbon Dioxide 22 Anion Gap 11 BUN 11 Creatinine 0.88 Est GFR ( Amer) > 60 Est GFR (Non-Af Amer) > 60 Glucose 118 H Calcium 9.6 02/06/18 21:50 Clean Catch Midstream Urine Culture - Final NO GROWTH 2 DAYS 02/04/18 02/05/18 02/06/18 04:07 12:23 04:08 Creatine Kinase 2155 H 1144 H 1033 H 02/07/18 02/08/18 02/09/18 06:25 04:40 08:44 Creatine Kinase 964 H 630 H 425 H Impressions: Chest X-Ray 02/02/18 00:00 IMPRESSION: NO ACUTE RADIOGRAPHIC FINDING IN THE CHEST. Head CT 02/02/18 00:00 IMPRESSION: NORMAL BRAIN CT WITHOUT CONTRAST. EVIDENCE OF ACUTE STROKE: NO. Head MRI 02/04/18 00:00 IMPRESSION: No acute findings. EVIDENCE OF ACUTE STROKE: NO. Hip X-Ray 02/07/18 00:00 IMPRESSION: NEGATIVE STUDY OF THE LEFT HIP AND PELVIS. NO RADIOGRAPHIC EVIDENCE OF ACUTE INJURY. Qualifiers - * PATIENT BEING DISCHARGED WITH ANY OF THE FOLLOWING DIAGNOSIS: No
== END 2018-02-09 15:21 | disposition home or self-care (01) | DRG 917 ==
LOC: ER 18:12 → EH 19:34 → INTOOBSV 19:34 → 5 20:48 → OBSVTOIN 02-03 14:25
PROVIDERS: ADMIT Internal Medicine; ATTEND Internal Medicine
PROC: 3E0234Z Introduction of Serum, Toxoid and Vaccine into Muscle, Percutaneous Approach (ICD-10-PCS; principal; 2018-02-09)
DX: T50.905A Adverse effect of unspecified drugs, medicaments and biological substances, initial encounter (principal); G92 Toxic encephalopathy; M62.82 Rhabdomyolysis; F20.89 Other schizophrenia; F19.99 Other psychoactive substance use, unspecified with unspecified psychoactive substance-induced disorder; E87.6 Hypokalemia; E86.0 Dehydration; R74.0 Nonspecific elevation of levels of transaminase and lactic acid dehydrogenase [LDH]; D72.829 Elevated white blood cell count, unspecified; F41.1 Generalized anxiety disorder; R25.1 Tremor, unspecified; M25.552 Pain in left hip; R26.81 Unsteadiness on feet; Y92.091 Bathroom in other non-institutional residence as the place of occurrence of the external cause; Z23 Encounter for immunization
CPT/HCPCS: 36415; 51701; 70450; 70553; 71045; 80048; 80053; 80076; 80307; 81001; 82140; 82306; 82550; 82607; 82962; 83735; 83970; 84439; 85025; 85027; 85610; 85730; 86592; 87086; 90471; 90686; 93005; 93010; 96360; 99291; A9576; G0008; G0378; J0295; J1650; J2060; J3411; J3475; J3480; J3490; J7030

== ENCOUNTER 2018-06-23 17:20 | Emergency (ER) | payer BC ==
--- NOTE | 2018-06-23 17:39 | ER Document Report ---
ED Medical Screen (RME) - General Chief Complaint: Head Injury Stated Complaint: HEAD INJURY/LACERATION Time Seen by Provider: 06/23/18 17:32 Primary Care Provider: GLEN ALEMAN PA-C [Primary Care Provider] - Follow up as needed Notes: 52-year-old female patient fell at home in the bathroom and suffered a laceration to her left forehead. There is no loss consciousness. She states she is at her baseline other than the upper respiratory tract infection she has and she has a doctor's appointment for that. She does have a tremor that her spouse reports is normal for her. I have greeted and performed a rapid initial assessment of this patient. A comprehensive ED assessment and evaluation of the patient, analysis of test results and completion of the medical decision making process will be conducted by additional ED providers. TRAVEL OUTSIDE OF THE [place] IN LAST 30 DAYS: No - Related Data Allergies/Adverse Reactions: latex Allergy (Verified 02/02/18 18:47) sulfur dioxide Allergy (Verified 02/02/18 18:47) Past Medical History - Social History Chew tobacco use (# tins/day): No Frequency of alcohol use: Occasional Drug Abuse: None Renal/ Medical History: Denies: Hx Peritoneal Dialysis Past Surgical History: Reports: Hx Orthopedic Surgery - Neck surgery Physical Exam - Vital signs Vitals: Temp Pulse Resp BP Pulse Ox 98.2 F 110 H 16 154/84 H 97 06/23/18 17:30 06/23/18 17:30 06/23/18 17:30 06/23/18 17:30 06/23/18 17:30 Course - Vital Signs Vital signs: Temp Pulse Resp BP Pulse Ox 98.2 F 110 H 16 154/84 H 97 06/23/18 17:30 06/23/18 17:30 06/23/18 17:30 06/23/18 17:30 06/23/18 17:30 Doctor's Discharge - Discharge Referrals: GLEN ALEMAN PA-C [Primary Care Provider] - Follow up as needed
[2018-06-23] MEDS ORDERED: LIDOCAINE 1% INJ-PF (10 MG/ML) 30 ML SDV INJ ONE (18:40)
--- NOTE | 2018-06-23 18:43 | ER Document Report ---
ED General - General Chief Complaint: Head Injury Stated Complaint: HEAD INJURY/LACERATION Time Seen by Provider: 06/23/18 17:32 Primary Care Provider: GLEN ALEMAN PA-C [Primary Care Provider] - Follow up as needed TRAVEL OUTSIDE OF THE [place] IN LAST 30 DAYS: No - HPI Patient complains to provider of: Facial laceration Onset: Just prior to arrival Onset/Duration: Sudden Quality of pain: Sharp Severity: Severe Pain Level: 4 Context: Ground-level fall Associated symptoms: None Exacerbated by: Denies Relieved by: Denies Similar symptoms previously: No Recently seen / treated by doctor: No Notes: 52-year-old female coming in today with ground-level fall with resu lting left eyebrow laceration. Apparently the fall happened just prior to coming in. Patient did not lose consciousness. Did not have any dizziness or syncope. Did not have chest pain or shortness of breath. Patient is very tremulous at baseline and thinks that perhaps she just tripped and fell. Patient remembers everything that happened therefore I do not believe this was a syncopal episode. - Related Data Allergies/Adverse Reactions: latex Allergy (Verified 02/02/18 18:47) sulfur dioxide Allergy (Verified 02/02/18 18:47) Past Medical History - General Information source: Patient - Social History Smoking Status: Never Smoker Chew tobacco use (# tins/day): No Frequency of alcohol use: Occasional Drug Abuse: None Family History: Reviewed & Not Pertinent Patient has suicidal ideation: No Patient has homicidal ideation: No Renal/ Medical History: Denies: Hx Peritoneal Dialysis Past Surgical History: Reports: Hx Orthopedic Surgery - Neck surgery Review of Systems - Review of Systems Notes: Constitutional: No fevers. No chills. EENT: No eye redness. No eye pain. No ear pain. No sore throat. Cardiovascular: No chest pain. No palpitations. Respiratory: No cough. No shortness of breath. No respiratory distress. Gastrointestinal: No abdominal pain. No nausea, vomiting, or diarrhea. Genitourinary: Atraumatic. No lesions. No pain. No discharge. Musculoskeletal: Atraumatic. No swelling. No deformities. Skin: Left eyebrow laceration Lymphatic: No swollen lymph nodes. Neurologic: No headache. No syncope. Psychiatric: No suicidal or homicidal ideation. Physical Exam - Vital signs Vitals: Temp Pulse Resp BP Pulse Ox 98.2 F 110 H 16 154/84 H 97 06/23/18 17:30 06/23/18 17:30 06/23/18 17:30 06/23/18 17:30 06/23/18 17:30 - Notes Notes: General: Well-developed, well-nourished. In no acute distress. Non-toxic appearing. Cardiac: Well-perfused. Regular rate and rhythm. No murmurs, rubs, or gallops. Pulmonary: No respiratory distress. No cyanosis. Bilateral lung fiels are clear to auscultation. Abdominal: Non-distended. Non-rigid. Bowels sounds are present in all four quadrants. No guarding or rebound. HEENT: Head is atraumatic. Conjunctivae not reddened. No tearing. PERRL. EOMI. Orbits atraumatic. No periorbital swelling or erythema. Oropharynx is without erythema, swelling, or exudates. There is a 3 cm laceration diagonal through the middle of the left eyebrow. No active bleeding. Neck: Supple. No adenopathy. No meningismus. Dermatologic: Warm with good turgor. No rash. Atraumatic. Chest: Atraumatic. No chest wall tenderness to palpation. Musculoskeletal: Moves all extremities well. No range of motion deficits. no muscular or joint tenderness. No paraspinal muscle tenderness. no midline spinal tenderness or step-off. Genitourinary: Examination deferred Neurologic: No gross neurologic deficits. Psychiatric: Normal mood. Course - Vital Signs Vital signs: Temp Pulse Resp BP Pulse Ox 98.2 F 110 H 16 154/84 H 97 06/23/18 17:30 06/23/18 17:30 06/23/18 17:30 06/23/18 17:30 06/23/18 17:30 Procedures - Laceration/Wound Repair left eyebrow Time completed: 19:51 Wound length (cm): 3 Wound's Depth, Shape: Linear Laceration pre-procedure: Sterile PPE donned, Sterile drapes applied, Shur-Clens applied Anesthetic type: 1% Lidocaine Volume Anesthetic (mLs): 6 Wound explored: Clean Wound Repaired With: Sutures Suture Size/Type: 5:0, Prolene Number of Sutures: 6 Layer Closure?: No Post-procedure NV exam normal: Yes Complications: No Notes: 06/23/18 19:51 Patient tolerated procedure well Discharge - Discharge Clinical Impression: Head injury Qualifiers: Encounter type: initial encounter Qualified Code(s): S09.90XA - Unspecified injury of head, initial encounter Eyebrow laceration Qualifiers: Encounter type: initial encounter Laterality: left Qualified Code(s): S01.112A - Laceration without foreign body of left eyelid and periocular area, initial e ncounter Condition: Good Disposition: HOME, SELF-CARE Instructions: Antibiotic Ointment Protection ([facility]), Laceration Care ([facility]), Tetanus Immunization Given ([facility]) Referrals: GLEN ALEMAN PA-C [Primary Care Provider] - Follow up in 1 week
[2018-06-23] MEDS ORDERED: DIPH/PERTUSS(ACELL)/TETANUS VAC/PF 0.5 ML SYR (>=10YO) IM ONE (19:54)
[2018-06-23 20:33] VITALS: BP 110/84
== END 2018-06-23 20:42 | disposition home or self-care (01) ==
LOC: ER 17:20
PROC: 0HQ1XZZ Repair Face Skin, External Approach (ICD-10-PCS; principal; 2018-06-23)
DX: S09.90XA Unspecified injury of head, initial encounter (principal); S01.112A Laceration without foreign body of left eyelid and periocular area, initial encounter; W19.XXXA Unspecified fall, initial encounter
CPT/HCPCS: 99282; 90471; 90715; 12013; J3490